=== PATIENT | male | born 1940 | race Caucasian/White ===

== ENCOUNTER 2018-06-16 14:38 | Inpatient (IN) | payer MEDICARE, OTHER ==
[~2018-06-16] VITALS: Ht 182.9 cm; Wt 85.1 kg
[2018-06-16] MEDS ORDERED: PLEASE ENTER HEIGHT AND WEIGHT MC SCH (15:00)
[2018-06-16] MEDS ORDERED: SODIUM CHLORIDE FLUSH 10ML SYR IVF ONE (15:00)
[2018-06-16] MEDS ORDERED: PLEASE ENTER ALLERGIES MC SCH (15:00)
--- NOTE | 2018-06-16 15:00 | NUR ---
PT C/O INTERMITTENT CP SINCE LAST NOC WORSE WITH ACTIVITY. PT SENT FROM [facility] FOR TROP OF 0.12 AND BNP OF 1386. PT DENIES CP NOW BUT IT HAS RETURNED TODAY PER MEDICS PER PT WHEN HE DID ANY TYPE OF ACTIVITY. PT ON MONITOR, EKG DONE, AND LABS BEING DRAWN. PT GIVEN CALL LIGHT.
[2018-06-16] MEDS ORDERED: ASPI-496 PO ×2 (15:09)
[2018-06-16] MEDS ORDERED: OMEP-110 PO (15:09)
[2018-06-16] MEDS ORDERED: MULT-658 PO (15:09)
[2018-06-16] MEDS ORDERED: ROSUVASTATIN PO (15:09)
[2018-06-16] MEDS ORDERED: SPIR25TA5 PO (15:09)
[2018-06-16] MEDS ORDERED: LOSARTAN PO (15:09)
[2018-06-16 15:12] LABS: BASOPHILS # (AUTO) 0.04 x10^3/uL (0-0.1); BASOPHILS % (AUTO) 1 % (0-1); EOSINOPHILS # (AUTO) 0.02 x10^3/uL (0-0.4); EOSINOPHILS % (AUTO) 0 % (1-7); LYMPHOCYTES # (AUTO) 1.49 x10^3/uL (1-3.4); LYMPHOCYTES % (AUTO) 21 % (22-44); MD NO; MEAN CORPUSCULAR HEMOGLOBIN 30.1 pg (27.5-34.5); MEAN CORPUSCULAR HGB CONC 32.4 g/dL (33.2-36.2); MEAN CORPUSCULAR VOLUME 92.9 fL (81-97); MEAN PLATELET VOLUME 8.9 fL (7.4-10.4); MONOCYTES # (AUTO) 0.65 x10^3/uL (0.2-0.8); MONOCYTES % (AUTO) 9 % (2-9); NEUTROPHILS % (AUTO) 69 % (42-75); PLATELET COUNT 172 x10^3/uL (130-400); RED BLOOD COUNT 4.63 x10^6/uL (4.38-5.82); RED CELL DISTRIBUTION WIDTH 15.1 % (9.4-14.8)
[2018-06-16 15:20] LABS: ALBUMIN 3.5 g/dL (3.4-5.0); ANION GAP 7 mmol/L (5-15); CALCIUM 8.6 mg/dL (8.5-10.1); CHLORIDE 113 mmol/L (98-107); CREATININE 0.92 mg/dL (0.7-1.3)
[2018-06-16 15:24] LABS: TROPONIN I 0.092 ng/mL (0.000-0.045)
[2018-06-16] MEDS ORDERED: SODIUM CHLORIDE FLUSH 10ML SYR IVF PRN (15:30)
--- NOTE | 2018-06-16 16:26 | NUR ---
PT TO BE TRANSFERRED TO [facility] DUE TO INSURANCE AND [facility] IS ACCEPTING PT. PT WISHES TO BE TRANSFERRED TO [facility]. MEAL TRAY ORDERED FOR PT.
--- NOTE | 2018-06-16 16:37 | NUR ---
TP RN: [facility] NOW REFUSING PT FOR TRANSFER, CARD TELE BED RE-REQUESTED
[2018-06-16] MEDS ORDERED: ONDANSETRON ODT 4 MG PO PRN (17:00)
[2018-06-16] MEDS ORDERED: LABETALOL 5MG/ML, 20ML IVPush PRN (17:00)
[2018-06-16] MEDS ORDERED: ONDANSETRON 2MG/ML, 2ML IVPush PRN (17:00)
[2018-06-16] MEDS ORDERED: POLYETHYLENE GLYCOL 17 GM PACKET PO PRN (17:00)
[2018-06-16 17:24] VITALS: BP 175/92
[2018-06-16 17:43] LABS: FREE T4 (FREE THYROXINE) 1.11 ng/dL (0.76-1.46); THYROID STIMULATING HORMONE 3.24 mIU/L (0.358-3.740)
[2018-06-16 18:00] LABS: HEMOGLOBIN A1C 6.5 % (4.2-6.3)
[2018-06-16] MEDS: HEPARIN 5,000 UNITS/ML, 1ML SQ SCH (18:19)
[2018-06-16 18:49] LABS: CHOL/HDL RATIO 3.5; LDL/HDL RATIO 1.9 (0.5-3.0)
[2018-06-16 19:42] VITALS: BP 174/76
[2018-06-16 19:43] VITALS: BP 163/94
[2018-06-16 19:44] VITALS: BP 152/84
[2018-06-16 19:49] LABS: INTERNATIONAL NORMALIZED RATIO 1.07 (0.93-1.1); PROTHROMBIN TIME 11.2 Seconds (9.6-11.5)
[2018-06-16 19:54] LABS: TROPONIN I 0.107 ng/mL (0.000-0.045)
[2018-06-16 20:01] LABS: CULTURE INDICATED? YES; MICROSCOPIC AUTO
[2018-06-16] MEDS ORDERED: ZOLPIDEM 5MG TABLET PO PRN (20:30)
[2018-06-16] MEDS: CEFTRIAXONE PMX 1GM/50ML 50 ML IV SCH (21:24)
[2018-06-16 23:24] LABS: TROPONIN I 0.095 ng/mL (0.000-0.045)
[2018-06-17] MEDS: HEPARIN 5,000 UNITS/ML, 1ML SQ SCH ×3 (01:30→17:59)
[2018-06-17 02:05] VITALS: BP 166/99
[2018-06-17] MEDS ORDERED: ZOLP12.52 PO (03:55)
[2018-06-17 05:16] LABS: BASOPHILS # (AUTO) 0.06 x10^3/uL (0-0.1); BASOPHILS % (AUTO) 1 % (0-1); EOSINOPHILS # (AUTO) 0.06 x10^3/uL (0-0.4); EOSINOPHILS % (AUTO) 1 % (1-7); LYMPHOCYTES # (AUTO) 1.27 x10^3/uL (1-3.4); LYMPHOCYTES % (AUTO) 18 % (22-44); MD NO; MEAN CORPUSCULAR HEMOGLOBIN 30.1 pg (27.5-34.5); MEAN CORPUSCULAR HGB CONC 32.4 g/dL (33.2-36.2); MEAN CORPUSCULAR VOLUME 92.7 fL (81-97); MEAN PLATELET VOLUME 8.8 fL (7.4-10.4); MONOCYTES # (AUTO) 0.69 x10^3/uL (0.2-0.8); MONOCYTES % (AUTO) 10 % (2-9); NEUTROPHILS # (AUTO) 4.94 x10^3/uL (1.8-6.8); NEUTROPHILS % (AUTO) 70 % (42-75); PLATELET COUNT 157 x10^3/uL (130-400); RED CELL DISTRIBUTION WIDTH 15.2 % (9.4-14.8)
[2018-06-17] MEDS: ASPIRIN 81 MG TABLET EC PO SCH (05:20)
[2018-06-17] MEDS: METOPROLOL SUCCINATE 25 MG TAB.ER.24H PO SCH (05:21)
[2018-06-17 05:33] LABS: CHLORIDE 111 mmol/L (98-107)
[2018-06-17 05:45] LABS: ALANINE AMINOTRANSFERASE 37 U/L (12-78); ALBUMIN 3.5 g/dL (3.4-5.0); ALKALINE PHOSPHATASE 63 U/L (45-117); ANION GAP 7 mmol/L (5-15); BILIRUBIN,TOTAL 0.9 mg/dL (0.2-1.0); CALCIUM 8.3 mg/dL (8.5-10.1); CREATININE 0.92 mg/dL (0.7-1.3); TOTAL PROTEIN 6.2 g/dL (6.4-8.2)
[2018-06-17 07:49] VITALS: BP 178/97
[2018-06-17] MEDS: SENNA/DOCUSATE TABLET PO SCH (09:00)
[2018-06-17] MEDS ORDERED: REGADENOSON 0.4 MG/5 ML SYRINGE ONE (10:31)
[2018-06-17] MEDS ORDERED: METO25TA91 PO (13:30)
[2018-06-17] MEDS ORDERED: LOSA25TA2 PO (13:30)
[2018-06-17 13:40] VITALS: BP 185/90
[2018-06-17] MEDS ORDERED: MAALOX/HYOSCYAMINE/LIDOCAINE 45 ML BTL PO ONE (14:00)
[2018-06-17] MEDS ORDERED: ZOLPIDEM 5MG TABLET PO PRN (19:30)
[2018-06-17 21:36] VITALS: BP 167/96
[2018-06-17] MEDS: CEFTRIAXONE PMX 1GM/50ML 50 ML IV SCH (21:40)
[2018-06-18] VITALS (10 sets, daily range): BP systolic 128–179; BP diastolic 74–107
[2018-06-18 02:27] LABS: BASOPHILS # (AUTO) 0.04 x10^3/uL (0-0.1); BASOPHILS % (AUTO) 1 % (0-1); EOSINOPHILS # (AUTO) 0.02 x10^3/uL (0-0.4); EOSINOPHILS % (AUTO) 0 % (1-7); LYMPHOCYTES # (AUTO) 1.36 x10^3/uL (1-3.4); LYMPHOCYTES % (AUTO) 21 % (22-44); MD NO; MEAN CORPUSCULAR HEMOGLOBIN 30.5 pg (27.5-34.5); MEAN CORPUSCULAR HGB CONC 32.9 g/dL (33.2-36.2); MEAN CORPUSCULAR VOLUME 92.8 fL (81-97); MEAN PLATELET VOLUME 8.9 fL (7.4-10.4); MONOCYTES # (AUTO) 0.71 x10^3/uL (0.2-0.8); MONOCYTES % (AUTO) 11 % (2-9); NEUTROPHILS # (AUTO) 4.39 x10^3/uL (1.8-6.8); NEUTROPHILS % (AUTO) 67 % (42-75); PLATELET COUNT 161 x10^3/uL (130-400); RED BLOOD COUNT 4.37 x10^6/uL (4.38-5.82); RED CELL DISTRIBUTION WIDTH 15.2 % (9.4-14.8)
[2018-06-18 02:33] LABS: ALANINE AMINOTRANSFERASE 30 U/L (12-78); ALBUMIN 3.2 g/dL (3.4-5.0); ANION GAP 4 mmol/L (5-15); CALCIUM 8.3 mg/dL (8.5-10.1); CHLORIDE 110 mmol/L (98-107); CREATININE 0.87 mg/dL (0.7-1.3)
[2018-06-18 02:35] LABS: ALKALINE PHOSPHATASE 72 U/L (45-117); BILIRUBIN,TOTAL 0.5 mg/dL (0.2-1.0)
[2018-06-18] MEDS: ASPIRIN 81 MG TABLET EC PO SCH (05:30)
[2018-06-18] MEDS: METOPROLOL SUCCINATE 25 MG TAB.ER.24H PO SCH (05:32)
[2018-06-18] MEDS: HEPARIN 5,000 UNITS/ML, 1ML SQ SCH (05:32)
[2018-06-18] MEDS ORDERED: FUROSEMIDE 20 MG TABLET PO SCH (08:00)
[2018-06-18] MEDS ORDERED: LABETALOL 5 MG/ML SYRINGE IVPush PRN (08:00)
[2018-06-18] MEDS ORDERED: LOSARTAN 25MG TABLET PO SCH (09:00)
[2018-06-18] MEDS: LOSARTAN 25MG TABLET PO SCH (09:51)
[2018-06-18] MEDS: SENNA/DOCUSATE TABLET PO SCH (09:51)
[2018-06-18] MEDS: CARVEDILOL 12.5 MG TABLET PO SCH ×2 (09:51→17:14)
[2018-06-18] MEDS: FUROSEMIDE 20 MG/2 ML IV SCH ×2 (09:52→17:14)
[2018-06-18] MEDS: APIXABAN 5 MG TABLET PO SCH ×2 (09:53→21:10)
[2018-06-18] MEDS: CEFTRIAXONE PMX 1GM/50ML 50 ML IV SCH (21:10)
[2018-06-18] MEDS: TRAZODONE 100MG TABLET PO PRN (22:06)
[2018-06-19] VITALS (8 sets, daily range): BP systolic 115–154; BP diastolic 69–93
[2018-06-19] MEDS: ASPIRIN 81 MG TABLET EC PO SCH (05:41)
[2018-06-19] MEDS: CARVEDILOL 12.5 MG TABLET PO SCH ×2 (05:41→17:08)
[2018-06-19 06:27] LABS: ALBUMIN 3.6 g/dL (3.4-5.0); ANION GAP 7 mmol/L (5-15); CALCIUM 8.7 mg/dL (8.5-10.1); CHLORIDE 107 mmol/L (98-107); CREATININE 0.83 mg/dL (0.7-1.3)
[2018-06-19 06:28] LABS: BASOPHILS # (AUTO) 0.02 x10^3/uL (0-0.1); BASOPHILS % (AUTO) 0 % (0-1); EOSINOPHILS % (AUTO) 2 % (1-7); LYMPHOCYTES # (AUTO) 1.33 x10^3/uL (1-3.4); LYMPHOCYTES % (AUTO) 21 % (22-44); MD NO; MEAN CORPUSCULAR HEMOGLOBIN 30.7 pg (27.5-34.5); MEAN PLATELET VOLUME 9.1 fL (7.4-10.4); MONOCYTES # (AUTO) 0.66 x10^3/uL (0.2-0.8); MONOCYTES % (AUTO) 11 % (2-9); NEUTROPHILS # (AUTO) 4.19 x10^3/uL (1.8-6.8); NEUTROPHILS % (AUTO) 67 % (42-75); PLATELET COUNT 151 x10^3/uL (130-400); RED BLOOD COUNT 4.52 x10^6/uL (4.38-5.82); RED CELL DISTRIBUTION WIDTH 14.9 % (9.4-14.8)
[2018-06-19] MEDS: FUROSEMIDE 20 MG/2 ML IV SCH ×2 (08:29→17:08)
[2018-06-19] MEDS: APIXABAN 5 MG TABLET PO SCH ×2 (08:29→20:43)
[2018-06-19] MEDS: SENNA/DOCUSATE TABLET PO SCH (08:29)
[2018-06-19] MEDS: LOSARTAN 25MG TABLET PO SCH (08:29)
[2018-06-19] MEDS ORDERED: POTASSIUM CHLORIDE 20 MEQ TAB.ER.PRT ONE (08:48)
[2018-06-19] MEDS ORDERED: POTASSIUM CHLORIDE 20 MEQ TAB.ER.PRT PO ONE ×2 (09:00→11:00)
[2018-06-19] MEDS: CEFTRIAXONE PMX 1GM/50ML 50 ML IV SCH (20:44)
[2018-06-20 01:40] VITALS: BP 142/79
[2018-06-20] MEDS: ASPIRIN 81 MG TABLET EC PO SCH (06:29)
[2018-06-20 06:31] LABS: BASOPHILS # (AUTO) 0.03 x10^3/uL (0-0.1); BASOPHILS % (AUTO) 1 % (0-1); EOSINOPHILS # (AUTO) 0.06 x10^3/uL (0-0.4); EOSINOPHILS % (AUTO) 1 % (1-7); LYMPHOCYTES # (AUTO) 1.16 x10^3/uL (1-3.4); LYMPHOCYTES % (AUTO) 20 % (22-44); MD NO; MEAN CORPUSCULAR HEMOGLOBIN 30.4 pg (27.5-34.5); MEAN CORPUSCULAR HGB CONC 32.5 g/dL (33.2-36.2); MEAN CORPUSCULAR VOLUME 93.4 fL (81-97); MEAN PLATELET VOLUME 9.1 fL (7.4-10.4); MONOCYTES # (AUTO) 0.69 x10^3/uL (0.2-0.8); MONOCYTES % (AUTO) 12 % (2-9); NEUTROPHILS # (AUTO) 3.92 x10^3/uL (1.8-6.8); NEUTROPHILS % (AUTO) 67 % (42-75); PLATELET COUNT 152 x10^3/uL (130-400); RED BLOOD COUNT 4.14 x10^6/uL (4.38-5.82); RED CELL DISTRIBUTION WIDTH 15.3 % (9.4-14.8)
[2018-06-20 06:42] LABS: ANION GAP 6 mmol/L (5-15); CALCIUM 8.3 mg/dL (8.5-10.1); CHLORIDE 107 mmol/L (98-107)
[2018-06-20 06:46] LABS: ALANINE AMINOTRANSFERASE 26 U/L (12-78); ALKALINE PHOSPHATASE 63 U/L (45-117); BILIRUBIN,TOTAL 0.6 mg/dL (0.2-1.0); CREATININE 0.91 mg/dL (0.7-1.3); TOTAL PROTEIN 5.7 g/dL (6.4-8.2)
[2018-06-20 06:56] VITALS: BP 139/75
[2018-06-20] MEDS ORDERED: POTASSIUM CHLORIDE 20 MEQ TAB.ER.PRT PO ONE ×2 (08:00→11:00)
[2018-06-20] MEDS ORDERED: MAGNESIUM SULFATE 1 GM in SODIUM CHLORIDE 0.9% 50 ML IV ONE (08:00)
[2018-06-20 08:09] VITALS: BP 143/74
[2018-06-20] MEDS: FUROSEMIDE 20 MG/2 ML IV SCH ×2 (08:13→16:46)
[2018-06-20] MEDS: APIXABAN 5 MG TABLET PO SCH ×2 (08:13→20:49)
[2018-06-20] MEDS: LOSARTAN 25MG TABLET PO SCH (08:13)
[2018-06-20] MEDS: SENNA/DOCUSATE TABLET PO SCH (08:13)
[2018-06-20] MEDS ORDERED: CARVEDILOL 12.5 MG TABLET ONE (08:44)
[2018-06-20] MEDS: CARVEDILOL 12.5 MG TABLET PO SCH ×2 (08:56→20:49)
[2018-06-20 12:59] VITALS: BP 126/79
[2018-06-20] MEDS ORDERED: HYDROcodone/APAP 5/325 TABLET ONE (16:09)
[2018-06-20 16:11] VITALS: BP 155/84
[2018-06-20] MEDS ORDERED: HYDROcodone/APAP 5/325 TABLET PO PRN (16:30)
[2018-06-20] MEDS ORDERED: CARVEDILOL 12.5 MG TABLET PO SCH (18:00)
[2018-06-20 19:17] VITALS: BP 159/78
[2018-06-20] MEDS: TRAZODONE 100MG TABLET PO PRN (22:58)
[2018-06-21 00:55] VITALS: BP 124/68
[2018-06-21] MEDS: ASPIRIN 81 MG TABLET EC PO SCH (05:34)
[2018-06-21 06:14] LABS: BASOPHILS # (AUTO) 0.05 x10^3/uL (0-0.1); BASOPHILS % (AUTO) 1 % (0-1); EOSINOPHILS # (AUTO) 0.08 x10^3/uL (0-0.4); EOSINOPHILS % (AUTO) 2 % (1-7); LYMPHOCYTES % (AUTO) 29 % (22-44); MD NO; MEAN CORPUSCULAR HEMOGLOBIN 30.3 pg (27.5-34.5); MEAN CORPUSCULAR HGB CONC 32.3 g/dL (33.2-36.2); MEAN CORPUSCULAR VOLUME 93.7 fL (81-97); MEAN PLATELET VOLUME 9.2 fL (7.4-10.4); MONOCYTES # (AUTO) 0.54 x10^3/uL (0.2-0.8); MONOCYTES % (AUTO) 10 % (2-9); NEUTROPHILS # (AUTO) 3.07 x10^3/uL (1.8-6.8); NEUTROPHILS % (AUTO) 59 % (42-75); PLATELET COUNT 173 x10^3/uL (130-400); RED CELL DISTRIBUTION WIDTH 15.7 % (9.4-14.8)
[2018-06-21 06:16] LABS: ALBUMIN 3.2 g/dL (3.4-5.0); ANION GAP 6 mmol/L (5-15); CALCIUM 8.6 mg/dL (8.5-10.1); CHLORIDE 109 mmol/L (98-107)
[2018-06-21 06:20] LABS: ALANINE AMINOTRANSFERASE 27 U/L (12-78); ALKALINE PHOSPHATASE 67 U/L (45-117); BILIRUBIN,TOTAL 0.6 mg/dL (0.2-1.0); CREATININE 0.97 mg/dL (0.7-1.3); TOTAL PROTEIN 6.4 g/dL (6.4-8.2)
[2018-06-21 06:54] VITALS: BP 155/68
[2018-06-21 07:41] VITALS: BP 142/82
[2018-06-21] MEDS ORDERED: AMIODARONE 900 MG in DEXTROSE 5% 482 ML IV PRN (08:30)
[2018-06-21] MEDS ORDERED: AMIODARONE 150 MG in DEXTROSE 5% 100 ML IV ONE (08:30)
[2018-06-21] MEDS: FUROSEMIDE 20 MG/2 ML IV SCH ×2 (08:45→17:14)
[2018-06-21] MEDS: CEFDINIR 300 MG CAPSULE PO SCH ×2 (08:45→20:17)
[2018-06-21] MEDS: SENNA/DOCUSATE TABLET PO SCH (08:46)
[2018-06-21] MEDS: CARVEDILOL 12.5 MG TABLET PO SCH ×2 (08:47→20:17)
[2018-06-21] MEDS: LOSARTAN 25MG TABLET PO SCH (08:47)
[2018-06-21] MEDS: APIXABAN 5 MG TABLET PO SCH ×2 (08:48→20:17)
[2018-06-21] MEDS ORDERED: CARVEDILOL 25 MG TABLET PO SCH (09:00)
[2018-06-21] MEDS ORDERED: FILTER 0.22 MICRON FOR AMIODARONE IV PRN (09:00)
[2018-06-21] MEDS ORDERED: POTASSIUM CHLORIDE 20 MEQ TAB.ER.PRT PO ONE (12:00)
[2018-06-21 14:04] VITALS: BP 139/78
[2018-06-21 19:35] VITALS: BP 112/73
[2018-06-22 01:05] VITALS: BP 119/73
[2018-06-22] MEDS: ASPIRIN 81 MG TABLET EC PO SCH (05:34)
[2018-06-22 06:13] LABS: CHLORIDE 107 mmol/L (98-107)
[2018-06-22 06:17] LABS: ALBUMIN 3.5 g/dL (3.4-5.0); ANION GAP 8 mmol/L (5-15); CALCIUM 8.8 mg/dL (8.5-10.1); CREATININE 1.11 mg/dL (0.7-1.3)
[2018-06-22 07:55] VITALS: BP 134/81
[2018-06-22] MEDS: CEFDINIR 300 MG CAPSULE PO SCH ×2 (08:26→21:00)
[2018-06-22] MEDS: APIXABAN 5 MG TABLET PO SCH ×2 (08:26→21:00)
[2018-06-22] MEDS: FUROSEMIDE 20 MG/2 ML IV SCH ×2 (08:26→17:14)
[2018-06-22] MEDS: LOSARTAN 25MG TABLET PO SCH (08:26)
[2018-06-22] MEDS: CARVEDILOL 12.5 MG TABLET PO SCH ×2 (08:26→21:01)
[2018-06-22] MEDS: SENNA/DOCUSATE TABLET PO SCH (08:27)
[2018-06-22] MEDS: AMIODARONE 200 MG TABLET PO SCH ×2 (09:18→20:59)
[2018-06-22 15:44] VITALS: BP 147/75
[2018-06-22 20:00] VITALS: BP 144/77
[2018-06-23 01:26] VITALS: BP 133/78
[2018-06-23 05:09] LABS: ALBUMIN 3.5 g/dL (3.4-5.0); ANION GAP 7 mmol/L (5-15); CALCIUM 8.5 mg/dL (8.5-10.1); CHLORIDE 109 mmol/L (98-107)
[2018-06-23 05:11] LABS: ALANINE AMINOTRANSFERASE 29 U/L (12-78); ALKALINE PHOSPHATASE 70 U/L (45-117); BILIRUBIN,TOTAL 0.6 mg/dL (0.2-1.0); CREATININE 1.01 mg/dL (0.7-1.3); TOTAL PROTEIN 6.4 g/dL (6.4-8.2)
[2018-06-23] MEDS: ASPIRIN 81 MG TABLET EC PO SCH (05:42)
[2018-06-23] MEDS: FUROSEMIDE 20 MG/2 ML IV SCH (07:21)
[2018-06-23] MEDS: SENNA/DOCUSATE TABLET PO SCH (07:29)
[2018-06-23] MEDS: FUROSEMIDE 40 MG TABLET PO SCH (07:32)
[2018-06-23] MEDS ORDERED: POTASSIUM CHLORIDE 20 MEQ TAB.ER.PRT ONE (07:35)
[2018-06-23] MEDS ORDERED: AMIODARONE 200 MG TABLET ONE (07:37)
[2018-06-23] MEDS: CEFDINIR 300 MG CAPSULE PO SCH ×2 (07:39→22:39)
[2018-06-23] MEDS: POTASSIUM CHLORIDE 20 MEQ TAB.ER.PRT PO SCH (07:40)
[2018-06-23] MEDS: APIXABAN 5 MG TABLET PO SCH ×2 (07:40→22:39)
[2018-06-23] MEDS: LOSARTAN 25MG TABLET PO SCH (07:40)
[2018-06-23] MEDS: CARVEDILOL 12.5 MG TABLET PO SCH ×2 (07:40→22:38)
[2018-06-23 08:49] VITALS: BP 102/62
[2018-06-23] MEDS ORDERED: AMIODARONE 200 MG TABLET PO SCH (09:00)
[2018-06-23 13:54] VITALS: BP 114/74
[2018-06-23 20:35] VITALS: BP 155/91
[2018-06-24 02:00] VITALS: BP 136/86
[2018-06-24] MEDS: ASPIRIN 81 MG TABLET EC PO SCH (05:12)
[2018-06-24 05:36] LABS: BASOPHILS # (AUTO) 0.03 x10^3/uL (0-0.1); BASOPHILS % (AUTO) 1 % (0-1); EOSINOPHILS # (AUTO) 0.09 x10^3/uL (0-0.4); EOSINOPHILS % (AUTO) 1 % (1-7); LYMPHOCYTES # (AUTO) 1.65 x10^3/uL (1-3.4); LYMPHOCYTES % (AUTO) 25 % (22-44); MD NO; MEAN CORPUSCULAR HEMOGLOBIN 30.2 pg (27.5-34.5); MEAN CORPUSCULAR HGB CONC 32.7 g/dL (33.2-36.2); MEAN CORPUSCULAR VOLUME 92.3 fL (81-97); MEAN PLATELET VOLUME 9.3 fL (7.4-10.4); MONOCYTES # (AUTO) 0.85 x10^3/uL (0.2-0.8); MONOCYTES % (AUTO) 13 % (2-9); NEUTROPHILS # (AUTO) 4.05 x10^3/uL (1.8-6.8); NEUTROPHILS % (AUTO) 61 % (42-75); PLATELET COUNT 158 x10^3/uL (130-400); RED BLOOD COUNT 4.42 x10^6/uL (4.38-5.82); RED CELL DISTRIBUTION WIDTH 15.4 % (9.4-14.8)
[2018-06-24 05:39] LABS: CHLORIDE 109 mmol/L (98-107)
[2018-06-24 05:47] LABS: ALANINE AMINOTRANSFERASE 26 U/L (12-78); ALBUMIN 3.3 g/dL (3.4-5.0); ALKALINE PHOSPHATASE 68 U/L (45-117); ANION GAP 6 mmol/L (5-15); BILIRUBIN,TOTAL 0.7 mg/dL (0.2-1.0); CALCIUM 8.4 mg/dL (8.5-10.1); CREATININE 0.88 mg/dL (0.7-1.3); TOTAL PROTEIN 6.3 g/dL (6.4-8.2)
[2018-06-24 08:00] VITALS: BP 114/76
[2018-06-24] MEDS ORDERED: POTASSIUM CHLORIDE 20 MEQ TAB.ER.PRT PO ONE ×2 (08:00→11:00)
[2018-06-24] MEDS: SENNA/DOCUSATE TABLET PO SCH (09:00)
[2018-06-24] MEDS ORDERED: APIX5TAB PO (09:25)
[2018-06-24] MEDS ORDERED: CARV12.543 PO (09:25)
[2018-06-24] MEDS ORDERED: AMIO200T42 PO (09:25)
[2018-06-24] MEDS ORDERED: ASPI81TA45 PO (09:25)
[2018-06-24] MEDS ORDERED: CEFD300C37 PO (09:25)
[2018-06-24] MEDS ORDERED: FURO40TA6 PO (09:25)
[2018-06-24] MEDS ORDERED: LOSA25TA25 PO (09:25)
[2018-06-24] MEDS: APIXABAN 5 MG TABLET PO SCH (09:45)
[2018-06-24] MEDS: FUROSEMIDE 40 MG TABLET PO SCH (09:45)
[2018-06-24] MEDS: POTASSIUM CHLORIDE 20 MEQ TAB.ER.PRT PO SCH (09:45)
[2018-06-24] MEDS: CARVEDILOL 12.5 MG TABLET PO SCH (09:46)
[2018-06-24] MEDS: LOSARTAN 25MG TABLET PO SCH (09:46)
[2018-06-24] MEDS: CEFDINIR 300 MG CAPSULE PO SCH (09:46)
[2018-06-24] MEDS ORDERED: AMIODARONE 200 MG TABLET PO SCH (10:00)
[2018-06-24] MEDS ORDERED: POTA10CA PO (13:43)
[2018-06-24 14:00] VITALS: BP 115/71
[2018-06-24] MEDS ORDERED: POTA10TA31 PO (14:42)
== END 2018-06-24 15:08 | disposition home or self-care (01) | DRG 391 ==
LOC: ED 15:49 → EDIP 16:24 → 5SO 16:59
PROVIDERS: ADMIT Internal Medicine; ATTEND Internal Medicine
DX: K21.9 Gastro-esophageal reflux disease without esophagitis (principal); I50.43 Acute on chronic combined systolic (congestive) and diastolic (congestive) heart failure; N39.0 Urinary tract infection, site not specified; H33.20 Serous retinal detachment, unspecified eye; I25.110 Atherosclerotic heart disease of native coronary artery with unstable angina pectoris; D68.69 Other thrombophilia; I47.2 Ventricular tachycardia; I11.0 Hypertensive heart disease with heart failure; D64.9 Anemia, unspecified; E11.9 Type 2 diabetes mellitus without complications; E78.5 Hyperlipidemia, unspecified; F17.210 Nicotine dependence, cigarettes, uncomplicated; G40.909 Epilepsy, unspecified, not intractable, without status epilepticus; I25.2 Old myocardial infarction; I25.5 Ischemic cardiomyopathy; I27.20 Pulmonary hypertension, unspecified; I48.0 Paroxysmal atrial fibrillation; I71.4 Abdominal aortic aneurysm, without rupture; J44.9 Chronic obstructive pulmonary disease, unspecified; N40.0 Benign prostatic hyperplasia without lower urinary tract symptoms; Z79.01 Long term (current) use of anticoagulants; Z79.82 Long term (current) use of aspirin; Z79.899 Other long term (current) drug therapy; Z82.49 Family history of ischemic heart disease and other diseases of the circulatory system; Z91.19 Patient's noncompliance with other medical treatment and regimen; Z91.81 History of falling; Z95.1 Presence of aortocoronary bypass graft; Z96.649 Presence of unspecified artificial hip joint
CPT/HCPCS: 36415; 71045; 74174; 78452; 80048; 80053; 80061; 81001; 82040; 82962; 83036; 83735; 83880; 84100; 84439; 84443; 84484; 85025; 85610; 87040; 87086; 93005; 93017; 93306; 93922; 93925; 93978; 99285; G0378; J0696; J1644; J2785; J3475; A9502; C9898; J0282; J1940; J7060